=== PATIENT | female | born 1965 | race Caucasian/White ===

== ENCOUNTER 2023-07-06 10:04 | Inpatient (IN) ==
--- NOTE | 2023-05-29 14:46 | PAT Medication Instructions ---
Medication Instructions Date of Service May 29, 2023 Home Medications albuterol sulfate 90 mcg/actuation aerosol inhaler 2 puff inhalation QID PRN alprazolam 0.5 mg tablet (Xanax) 0.5 mg PO TID PRN duloxetine 60 mg capsule,delayed release (Cymbalta) 60 mg PO QAM fluticasone 100 mcg-salmeterol 50 mcg/dose blistr powdr for inhalation (Advair Diskus) 1 inh inhalation BID meloxicam 15 mg tablet 15 mg PO QAM nebivolol 10 mg tablet (Bystolic) 10 mg PO QAM upadacitinib 15 mg tablet,extended release 24 hr (Rinvoq) 15 mg PO QAM ASK your surgeon for instructions meloxicam 15 mg tablet 15 mg PO QAM ASK your prescriber and surgeon upadacitinib 15 mg tablet,extended release 24 hr (Rinvoq) 15 mg PO QAM Take morning of surgery With a small sip of water, OTHERWISE NOTHING TO EAT OR DRINK AFTER MIDNIGHT: albuterol sulfate 90 mcg/actuation aerosol inhaler 2 puff inhalation QID PRN(use if needed; please bring with you to hospital day of surgery if possible) alprazolam 0.5 mg tablet (Xanax) 0.5 mg PO TID PRN(if needed) duloxetine 60 mg capsule,delayed release (Cymbalta) 60 mg PO QAM fluticasone 100 mcg-salmeterol 50 mcg/dose blistr powdr for inhalation (Advair Diskus) 1 inh inhalation BID nebivolol 10 mg tablet (Bystolic) 10 mg PO QAM Take evening before surgery albuterol sulfate 90 mcg/actuation aerosol inhaler 2 puff inhalation QID PRN(if needed) alprazolam 0.5 mg tablet (Xanax) 0.5 mg PO TID PRN(if needed) fluticasone 100 mcg-salmeterol 50 mcg/dose blistr powdr for inhalation (Advair Diskus) 1 inh inhalation BID Other Notes If you have any questions please call us at [phone] or [phone] or [phone] or [phone]
--- NOTE | 2023-06-02 15:21 | Anesthesiology Consultation ---
Date of Service June 02, 2023 Assessment & Plan (1) Encounter for pre-operative examination: Chart Review Chart Review: Acceptable Risk for Surgery (pending PCP clearance 06/08/23) and Patient seen in Pre Admission Testing - Awaiting PCP clearance scheduled 06/08/23 (Dr Jeffry Grover)- please fax preop testing to PCP for review Per PAT appt on 06/02/23, patient denies any recent travel or large group activities. Pt is vaccinated for Covid. Will leave to surgeon's discretion if preop Covid testing needed. Educated on importance of using Covid precautions one week prior to surgery Teaching & Discussion Pre-Anesthesia Teaching/Discussion Notes: Instructed NPO after midnight before surgery,except medications with 15 cc of water. Medication instructions provided according to the PAT guidelines. History Surgery Operation Date: 06/16/23 12:25 Proposed Procedures p L4-L5 Decompression and Fusion - Pal Salas DO Height/Weight Height: 5 ft 3 in Weight: 108.7 kg Allergies Allergy/AdvReac Type Severity Reaction Status Date / Time No Known Allergies Allergy Verified 05/29/23 11:34 Medications Home Medications Medication Instructions Recorded Confirmed Last Taken albuterol sulfate 90 mcg/actuation 2 puff inhalation QID PRN 05/29/23 05/29/23 Unknown aerosol inhaler Shortness Of Breath alprazolam 0.5 mg tablet (Xanax) 0.5 mg PO TID PRN Anxiety 05/29/23 05/29/23 Unknown duloxetine 60 mg capsule,delayed 60 mg PO QAM 05/29/23 05/29/23 Unknown release (Cymbalta) fluticasone 100 mcg-salmeterol 50 1 inh inhalation BID 05/29/23 05/29/23 Unknown mcg/dose blistr powdr for inhalation (Advair Diskus) meloxicam 15 mg tablet 15 mg PO QAM 05/29/23 05/29/23 Unknown nebivolol 10 mg tablet (Bystolic) 10 mg PO QAM 05/29/23 05/29/23 Unknown upadacitinib 15 mg tablet,extended 15 mg PO QAM 05/29/23 05/29/23 Unknown release 24 hr (Rinvoq) Past Medical History Medical History (Updated 06/02/23 @ 15:43 by Rosita J. Sauk, PA-C) Ankylosing spondylitis On Rinvovq Anxiety Cardiac murmur per pt is mild, follows with PCP no significant issues to 2021 ECHO no significant murmur noted at 06/02/23 PAT appt Chronic back pain Chronic obstructive pulmonary disease mild, inhaler daily/prn (states has not used rescue inhaler in a few years) breathing stable History of COVID-19 03/2022--mild symptoms, no symptoms now Exercise / Class Metabolic Activity II 4-5 Yardwork/Stairs/Walk up hill (one flight of stairs- no chest pain or SOB ) Past Family History Family History Mother Family history of reaction to anesthesia "had a buildup of carbon dioxide in her blood, she was also a 3 pack a day smoker", "her blood pressure plummeted" per pt happened during procedure for stenosis on her back Past Surgical History Surgical History History of appendectomy History of bilateral tubal ligation History of bladder suspension procedure x2 History of colonoscopy History of endometrial ablation History of foot surgery bilt for plantar fasciitis History of laparoscopy multiple for endometriosis History of surgical procedure on eye proper using laser bilt eyes History of tooth extraction Past Anesthesia History No Hx of Anesthesia Complications and No Family Hx of Anesthesia Complications (with exception to mother - specifics vague - had build up of carbon dioxide/hypotension ) History of PONV No Hx of PONV and No Hx of Motion Sickness Social History Smoking Status: Former smoker Do You Dip or Chew Tobacco: No Smoking End Date: quit 04/01/23 (did smoke 1 pack a day for 30yrs) Hx Alcohol Use: Yes ("one drink a month if that") alcohol intake frequency: holidays/special occasions only Hx Substance Use: Yes (smokes marijuana intermittently for pain) substance use type: marijuana Last Used Substance: Days (ago) Last Used Substance Other:: last week used marijuana Review of Systems Patient denies chest pain, shortness of breath, dyspnea on exertion, reflux, cough, wheezing, palpitations. No hx of seizures, stroke, UT, apnea/snoring. No hx of blood clots or blood transfusions Physical Exam Vital Signs VITALS BP 126/68 (manually) P 82 TEMP 97.8 SP02 95% RESP 16 Constitutional no acute distress ENMT Mouth: no TMJ clicking Thyromental Distance: > or= 3.5 Finger Breadths (3.5) Mallampati Class: III Missing molars Neck + thick neck; neck extension not limited Respiratory normal respiratory effort; no respiratory distress Auscultation: lungs clear to auscultation bilaterally; no wheezes Cardiovascular Rate/Rhythm: regular rate and regular rhythm Heart Sounds: no murmur (no significant murmur noted ) Vessels: no carotid bruit Musculoskeletal Spine: no pain with cervical ROM Extremities: extremities normal to inspection Psychiatric Orientation: alert Lab Results Anesthesia Preop Results Results Anesthesia Widget: WBC 7.21 K/ul (4.8-10.8) 06/02/23 Hgb 11.6 g/dl (12.0-16.0) L 06/02/23 Hct 35.1 % (37.0-47.0) L 06/02/23 Plt 314 K/uL (130-400) 06/02/23 Na 138 mmol/L (136-145) 06/02/23 K 4.6 mmol/L (3.5-5.1) 06/02/23 Cl 104 mmol/L (98-107) 06/02/23 CO2 28 mmol/L (21-32) 06/02/23 BUN 14 mg/dl (6-23) 06/02/23 Creat 1.00 mg/dl (0.6-1.2) 06/02/23 Glucose Level 143 mg/dl (70-99(Fasting)) H 06/02/23 PT 10.0 Seconds (9.0-12.0) 06/02/23 PTT 26.0 Seconds (21.0-31.0) 06/02/23 INR 0.9 (0.9-1.1) 06/02/23 Urine Color Yellow 06/02/23 Urine Appearance Clear (Clear) 06/02/23 Urine pH 6.0 (4.5-7.5) 06/02/23 Urine Specific [place] 1.016 (1.000-1.030) 06/02/23 Urine Protein Negative (Negative) 06/02/23 Urine Glucose (UA) Negative (Negative) 06/02/23 Urine Ketones Negative (Negative) 06/02/23 Urine Blood Negative (Negative) 06/02/23 Urine Nitrite Negative (Negative) 06/02/23 Urine Bilirubin Negative (Negative) 06/02/23 Urine Urobilinogen Negative (Negative) 06/02/23 Urine Leukocyte Esterase Negative (Negative) 06/02/23 Blood Type O Positive 06/02/23 Antibody Screen NEGATIVE 06/02/23 Testing Electrocardiogram Date: 06/02/23 Findings: + NSR @ (77bpm ) Normal EKG per cardio Chest X-Ray Date: 06/02/23 Findings: + NAD FINDINGS: Exam is limited by underpenetration. Calcified aortic knob is seen. The lungs are clear. No evidence of pleural effusion or pneumothorax. Echocardiogram Date: 06/09/22 EF: 65-70% LV Function: normal Other Findings: no LVH Valvular Disease: + no significant valvular disease No LV outflow tract obstruction No evidence of pericardial effusion. No evidence of any gross valvular vegetations. No evidence of intracardiac thrombus. There is a significant pericardial fat pad present. No pleural effusion COVID-19 Risk Screen Screening Information COVID-19 Screen Date: 06/02/23 Exposure 21 Days Family/Household +COVID Last 21 Days: No Exposure 10 Days Any COVID Exposure Last 10 Days: No Symptoms Last 10 Days Experienced COVID Sx Last 10 Days: No + COVID 0-90 Days COVID + in Last 0-90 Days: No Risk Plan COVID Risk Plan: No Risk Identified Patient Education COVID Preop Screening Education Complete: Yes
[~2023-07-06 10:04] MED LIST: ACETAMINOPHEN 500 MG TAB PO SCH; CeleBREX 200 MG CAP PO SCH; DexMEDEtomidine HCL IV 100 MCG/ML VIAL IV ONE; FAMOTIDINE/PF 20 MG/2 ML VIAL IV ONE; GABAPENTIN 600 MG DOSE PO SCH; LR 15ML/HR IV SCH; LR 60ML/HR IV SCH; ceFAZolin 2000MG 2,000 MG/15 ML SYR IV SCH
[2023-07-06] MEDS ORDERED: fentaNYL citrate PF 100 MCG/2 ML VIAL ONE (11:57)
[2023-07-06] MEDS ORDERED: KETAMINE 50 MG/5 ML SYRINGE ONE (11:57)
[2023-07-06] MEDS ORDERED: MIDAZOLAM HCL 1 MG/ML 2ML VIAL ONE (11:57)
--- NOTE | 2023-07-06 12:22 | History & Physical Bridge Note ---
Date of Service July 06, 2023 History & Physical Bridge Note I have examined the patient, reviewed the History & Physical and in the interval since the performance of the History & Physical I have noted the following changes of clinical significance: no changes noted
--- NOTE | 2023-07-06 12:23 | History & Physical Report ---
Date of Service July 06, 2023 Assessment & Plan (1) Neurogenic claudication due to lumbar spinal stenosis: Plan: L4-L5 decompression and fusion History of Present Illness Chief Complaint: Back and leg pain Primary Care Provider: Jeffry Grover MD This is a 58-year-old female who presents chronic persistent back and leg pain and failing course of nonoperative care she is here for surgical invention. Allergies Allergy/AdvReac Type Severity Reaction Status Date / Time No Known Allergies Allergy Verified 07/06/23 10:22 Home Medications Medication Instructions Recorded Confirmed Type albuterol sulfate 90 mcg/actuation 2 puff inhalation QID PRN 05/29/23 05/29/23 History aerosol inhaler Shortness Of Breath alprazolam 0.5 mg tablet (Xanax) 0.5 mg PO TID PRN Anxiety 05/29/23 07/06/23 History duloxetine 60 mg capsule,delayed 60 mg PO QAM 05/29/23 07/06/23 History release (Cymbalta) fluticasone 100 mcg-salmeterol 50 1 inh inhalation BID 05/29/23 07/06/23 History mcg/dose blistr powdr for inhalation (Advair Diskus) meloxicam 15 mg tablet 15 mg PO QAM 05/29/23 07/06/23 History nebivolol 10 mg tablet (Bystolic) 10 mg PO QAM 05/29/23 07/06/23 History upadacitinib 15 mg tablet,extended 15 mg PO QAM 05/29/23 07/06/23 History release 24 hr (Rinvoq) Past Med/Surg History Medical History (Updated 07/06/23 @ 12:23 by Pal Salas DO) Ankylosing spondylitis On Rinvovq Anxiety Cardiac murmur per pt is mild, follows with PCP no significant issues to 2021 ECHO no significant murmur noted at 06/02/23 PAT appt Chronic back pain Chronic obstructive pulmonary disease mild, inhaler daily/prn (states has not used rescue inhaler in a few years) breathing stable History of COVID-19 03/2022--mild symptoms, no symptoms now Surgical History History of appendectomy History of bilateral tubal ligation History of bladder suspension procedure x2 History of colonoscopy History of endometrial ablation History of foot surgery bilt for plantar fasciitis History of laparoscopy multiple for endometriosis History of surgical procedure on eye proper using laser bilt eyes History of tooth extraction Family History Mother Family history of reaction to anesthesia "had a buildup of carbon dioxide in her blood, she was also a 3 pack a day smoker", "her blood pressure plummeted" per pt happened during procedure for stenosis on her back Social History Smoking Status: Former smoker Smoking End Date: quit 04/01/23 (did smoke 1 pack a day for 30yrs); Second Hand Exposure: No; Do You Dip or Chew Tobacco: No; Tobacco Cessation Education Requested by Patient: No Hx Alcohol Use: Yes ("one drink a month if that") Hx Substance Use: Yes (smokes marijuana intermittently for pain) Last Used Substance: Days (ago) Last Used Substance Other:: last week used marijuana Preferred Language: [place] Island[place] Communication Ability: Effective Senior Salesforce Developer Required: No Beliefs That Will Affect Care: None Current Living Situation: Spouse Other Information That Helps Us Care for You: No Feels Safe at Home: Yes Safety Concerns: Feels Safe At This Time Assistive Devices: Contacts and Glasses Physical Exam Physical Exam: Patient is alert and oriented Heart regular rhythm Lungs clear Results & Data Results & Data Vital Signs (Past 12 Hours) Vital Signs Temp Pulse Resp BP Pulse Ox O2 Del Method 07/06/23 10:26 36.8 C 80 20 152/94 H 98 Room Air
[2023-07-06] MEDS ORDERED: LIDOCAINE 2% 2 ML VIAL/AMP(20MG/ML) INFIL ONE (12:26)
[2023-07-06] MEDS ORDERED: PROPOFOL IV EMULSION 10 MG/ML 20 ML VIAL IV ONE (12:26)
[2023-07-06] MEDS ORDERED: ROCURONIUM BROMIDE 10 MG/ML 5 ML VIAL IV ONE (12:26)
[2023-07-06] MEDS ORDERED: ONDANSETRON INJ 2 MG/ML 2 ML VIAL ONE (12:26)
[2023-07-06] MEDS ORDERED: BUPIVACAINE/EPINEPHRINE 0.25% 1:200,000 30 ML VIAL ONE (12:39)
[2023-07-06] MEDS ORDERED: ceFAZolin 330 MG/ML 1 GM VIAL ONE ×2 (12:40→13:19)
[2023-07-06] MEDS ORDERED: ePHEDrine sulfate 50 MG/ML AMP IV PRN (12:49)
[2023-07-06] MEDS ORDERED: ONDANSETRON INJ 2 MG/ML 2 ML VIAL IV PRN ×2 (12:49→16:42)
[2023-07-06] MEDS ORDERED: PROMETHAZINE HCL 12.5 MG in SODIUM CHLORIDE 0.9% 50 ML IV PRN ×2 (12:49→16:42)
[2023-07-06] MEDS ORDERED: ATROPINE SULFATE 0.1 MG/ML 10ML SYR IV PRN (12:49)
[2023-07-06] MEDS ORDERED: HYDROmorphone INJ 2 MG/ML SYR/VIAL IV PRN (12:49)
[2023-07-06] MEDS ORDERED: fentaNYL citrate PF 100 MCG/2 ML VIAL IV PRN (12:49)
[2023-07-06] MEDS ORDERED: FLOSEAL HEMOSTATIC MATRIX 10ML TOP ONE (13:44)
[2023-07-06] MEDS ORDERED: HYDROmorphone INJ 2 MG/ML SYR/VIAL ONE (14:12)
[2023-07-06] MEDS ORDERED: SUGAMMADEX SODIUM 200 MG/2 ML VIAL IV ONE (14:20)
[2023-07-06] MEDS ORDERED: ePHEDrine sulfate 50 MG/ML AMP ONE (14:22)
--- NOTE | 2023-07-06 14:57 | Operative Report ---
Post Operative Report Pre & Post Diagnosis Operation Date: 07/06/23 11:45 Pre-Op Diagnosis: Neurogenic claudication due to lumbar spinal stenosis Post-Op Diagnosis: Neurogenic claudication due to lumbar spinal stenosis I identified the patient and participated in the time-out.: Yes Procedure Operation Date: 07/06/23 11:45 Actual Procedures 1. Lumbar decompression with bilateral medial facetectomies and foraminotomies L3-L4 L4-5. #2 posterior spinal fusion L4-5. #3 placement posterior instrumentation L4-5 per #4 interbody fusion L4-5 per #5 placement of Spira 14 x 26 mm cage x2 at L4-5 per #6 placement locally harvested morselized autograft and posterior gutters. #7 placement I factor bone of the talus in the interbody space and posterior lateral gutters. Surgeon Pal Salas, DO Nurse Anesthetist none Estimated Blood Loss 100 Findings See Below The patient is 5 foot 3 weighing over 103 kg with a BMI in excess of 40. The patient's body habitus did contribute to significant technical difficulty requiring her deepest retractors longer instruments in order to perform her procedure. This at least 50% increased operative time. Specimens none Indications This is a 58-year-old female who presents above-mentioned diagnosis after failing course of nonoperative care is here for surgical intervention. Description of Procedure Patient was met with identified informed consent obtained. Patient was then taken to the operative suite underwent ablation placed in a prone position on the Wilmer table top of the Brien frame. All bony prominences well-padded eyes inspected to ensure no external pressure placed upon the. This point the lumbar spine was prepped and draped in a sterile fashion. Sharp dissection with the assistance of Bovie cautery to form down to and exposing the lamina transverse processes of L4-L5. From caudal to cephalad fashion complete laminectomy of L4 partial and active L3 was performed including bilateral medial facetectomies and foraminotomies addressing severe spinal stenosis. Pedicle screws then placed in L4-5 bilaterally with assistance of fluoroscopy and appropriate sized karol placed. By way of a transforaminal approach on the right and discectomy was performed endplates guided to subcortically bone and a 14 x 26 mm Spira cage with I factor tapped in position. Then proceeded to approach the transforaminal joint region on the left again discectomy performed endplates curetted to subcortical bleeding bone and a second 14 x 26 mm Spira cage with I factor tapped in position. The rods were then compressed bilaterally locked into position and the transverse processes of L4-5 burred to subcortical bleed ing bone. I factor amount of the test and locally harvested morselized graft was placed in the posterior gutters. 15 round WHITNEY inserted. The incision was then closed with 1 Vicryl the fascia 2-0 Vicryl subcutaneously and 4 Monocryl for final skin closure. Steri-Strips sterile dressing placed. Patient waken taken to PACU stable condition. Please note spinal cord monitoring was utilized at the procedure no changes noted. I attest to the content of the Intraoperative Record and any orders documented therein. Any exceptions are noted below.
--- NOTE | 2023-07-06 15:53 | Anesthesiology Progress Note ---
Date of Service July 06, 2023 Anesthesia Post Procedure Vital Signs Vital Signs: Temp Pulse Pulse Resp BP Pulse Ox O2 Del Method 07/06/23 15:45 70 12 116/62 94 Nasal Cannula 07/06/23 15:35 80 12 107/65 94 Oxymask 07/06/23 15:25 78 14 120/82 97 Oxymask 07/06/23 15:15 74 16 99/68 L 97 Oxymask 07/06/23 15:05 36.4 C L 84 16 116/95 94 Oxymask 07/06/23 10:26 36.8 C 80 20 152/94 H 98 Room Air O2 Flow Rate 07/06/23 15:45 3 07/06/23 15:35 5 07/06/23 15:25 5 07/06/23 15:15 8 07/06/23 15:05 10 07/06/23 10:26 Pain Intensity Bilateral Lower Back: Pain Intensity: 10 Bilateral Back: Pain Intensity: 10 Transfer of Care Handoff Completed per policy Notes Mental Status: alert / awake / arousable and participated in evaluation Patient Amnestic to Procedure: Yes Nausea / Vomiting: adequately controlled Pain: adequately controlled Airway Patency, RR, SpO2: stable & adequate BP & HR: stable & adequate Hydration State: stable & adequate Anesthetic Complications: no major complications apparent
[2023-07-06] MEDS ORDERED: ALPRAZolam 0.5 MG TABLET PO PRN (16:42)
[2023-07-06] MEDS ORDERED: FAMOTIDINE 20 MG TAB PO PRN (16:42)
[2023-07-06] MEDS ORDERED: HYDROmorphone INJ 0.5 MG/0.5 ML SYR IV PRN (16:42)
[2023-07-06] MEDS ORDERED: LORazepam 0.5 MG TAB PO PRN (16:42)
[2023-07-06] MEDS ORDERED: hydrOXYzine HCl 25 MG TAB PO PRN (16:42)
[2023-07-06] MEDS ORDERED: METOCLOPRAMIDE HCL INJ 5 MG/ML 2 ML VIAL IV PRN (16:42)
[2023-07-06] MEDS ORDERED: DO NOT ADMINISTER FLU VACCINE PRN (16:42)
[2023-07-06] MEDS ORDERED: ALUMINUM/MAGNESIUM SUSP 30 ML UDC PO PRN (16:42)
[2023-07-06] MEDS ORDERED: SOD PHOSPHATE/SOD BIPHOSPHATE ENEMA 132 ML BTL PR PRN (16:42)
[2023-07-06] MEDS ORDERED: LORazepam 2 MG/1 ML VIAL IV PRN (16:42)
[2023-07-06] MEDS ORDERED: ACETAMINOPHEN 1,000 MG/100 ML VIAL IV PRN (16:42)
[2023-07-06] MEDS ORDERED: traMADol HCL 50 MG TABLET PO PRN (16:42)
[2023-07-06] MEDS ORDERED: ONDANSETRON 4 MG OD TAB PO PRN (16:42)
[2023-07-06] MEDS ORDERED: bisacodyL 10 MG SUPP PR PRN (16:42)
[2023-07-06] MEDS ORDERED: ALBUTEROL HFA 8 GM INHALER INH PRN (16:42)
[2023-07-06] MEDS ORDERED: NALOXONE HCL 0.4 MG/1 ML VIAL/CARP IV PRN (16:42)
[2023-07-06] MEDS ORDERED: DO NOT ADMINISTER PNEUMOCOCCAL VACCINE PRN (16:42)
[2023-07-06] MEDS ORDERED: ACETAMINOPHEN 500 MG TAB PO PRN (16:42)
[2023-07-06] MEDS ORDERED: MAGNESIUM HYDROXIDE SUSP 30 ML UDC PO PRN (16:42)
[2023-07-06] MEDS: HYDROmorphone INJ 1 MG/ML SYRINGE IV PRN ×2 (16:53→21:17)
[2023-07-06] MEDS: LACTATED RINGER'S 1,000 ML IV SCH ×2 (16:57→23:44)
--- NOTE | 2023-07-06 17:06 | Fluoroscopy Report ---
FL lumbar spine 2-3V CLINICAL HISTORY: L4-L5 D/F COMPARISON STUDY: None FLUOROSCOPY TIME: 20.7 seconds FLUOROSCOPY IMAGES: 2 EXPOSURE DOSE: 21.84 mGy FINDINGS: Laminectomy with posterior interbody rods and screw fusion with discectomy at L4-L5. Hardwa re appears intact. No unexpected opaque foreign bodies identified. IMPRESSION: Fluoroscopic assistance as above. ACT 112: Negative or not required by law. Electronically signed by: James Donis M.D. 07/06/2023 5:05 PM
--- NOTE | 2023-07-06 17:23 | Hospitalist Consultation ---
Date of Consultation July 06, 2023 Assessment & Plan (1) Neurogenic claudication due to lumbar spinal stenosis: - Pain management, bowel regimen and DVT ppx per the primary team - PT/OT consult - Follow am CBC to monitor for acute blood loss, last Hgb was 11.6 on 06/02/23 - New catheter is out (2) Anxiety: -Continue Cymbalta, Xanax prn anxiety (3) Ankylosing spondylitis: -Patient is on Rinvoq 15 mg daily - will hold for now and can resume upon disch arge (4) Chronic obstructive pulmonary disease: -Continue Advair daily (5) Morbid obesity with BMI of 40.0-44.9, adult: - Diet and exercise to be encouraged throughout hospital stay (6) HTN (hypertension): -Nebivolol 10 mg daily was ordered, thought that hypertension was secondary to pain (7) Tobacco use: - Cessation advised at bedside, pt smoked 0.75 ppd - Holding nicotine patch for now and reassess tomorrow (8) Hyperglycemia: -Last A1c was 6.4 on outpatient testing -Monitor glucose levels, likely to be elevated with dexamethasone intraoperatively. -Diet and exercise to be encouraged throughout hospital stay and upon discharge DVT ppx: - teds, scds CODE: Full code Dispo: From home, likely to remain in the hospital x 1-2 days Thank you for involving us in the care of Ms. Cross. If you have any questions or concerns please do not hesitate to call. At this time medicine will follow along. A total of 35 minutes were spent with greater than 50% of that time face to face with the patient, personally reviewing all current laboratories, imaging studie s, past medication reconciliation, outpatient chart review, and discussion with specialists to collaborate care for the patient with attending. Please see attending documentation for corrections and/or additions. Supervising Physician Co-Signing Physician Notes Medical mx of elective lumbar decompresion surgery for medical mx of comorbidities including ankylosing spondylitis,copd htn. reviewed meds Pain mx as needed History of Present Illness Reason for Consultation: Medical Mangement Requesting Physician: Dr. Salas Attending Physician: Pal Salas, DO History of Present Illness This is a 58-year-old female with PMHx of COPD, chronic back pain, anxiety, ankylosing spondylitis, chronic tobacco use, morbid obesity with BMI of 40.6, who presents to the hospital for elective lumbar decompression fusion of L3-L5 by Dr. Salas on 07/06/2023. Pt is still groggy from anesthesia, but daughter at bedside is assisting in helping her with drinking clear liquids for dinner. Pt reports pain is much better controlled with dilaudid and got a dose recently. Her pain is 3/10. Pt does not wear O2 at baseline but is still on s/p surgery. Can move her legs and feet without any difficulty, no numbness. Pt is able to recall her home medications. Intermittently she is drowsy and closes her eyes but is responding appropriately and able to answer all questions. Allergies Allergy/AdvReac Type Severity Reaction Status Date / Time No Known Allergies Allergy Verified 07/06/23 10:22 Home Medications Medication Instructions Recorded Confirmed Type albuterol sulfate 90 mcg/actuation 2 puff inhalation QID PRN 05/29/23 05/29/23 History aerosol inhaler Shortness Of Breath alprazolam 0.5 mg tablet (Xanax) 0.5 mg PO TID PRN Anxiety 05/29/23 07/06/23 History duloxetine 60 mg capsule,delayed 60 mg PO QAM 05/29/23 07/06/23 History release (Cymbalta) fluticasone 100 mcg-salmeterol 50 1 inh inhalation BID 05/29/23 07/06/23 History mcg/dose blistr powdr for inhalation (Advair Diskus) meloxicam 15 mg tablet 15 mg PO QAM 05/29/23 07/06/23 History nebivolol 10 mg tablet (Bystolic) 10 mg PO QAM 05/29/23 07/06/23 History upadacitinib 15 mg tablet,extended 15 mg PO QAM 05/29/23 07/06/23 History release 24 hr (Rinvoq) fexofenadine 180 mg tablet 180 mg PO DAILY 07/06/23 07/06/23 History Patient History Medical History (Updated 07/06/23 @ 17:21 by Ester Ellis PA-C) Ankylosing spondylitis On Rinvovq Anxiety Cardiac murmur per pt is mild, follows with PCP no significant issues to 2021 ECHO no significant murmur noted at 06/02/23 PAT appt Chronic back pain Chronic obstructive pulmonary disease mild, inhaler daily/prn (states has not used rescue inhaler in a few years) breathing stable History of COVID-19 03/2022--mild symptoms, no symptoms now Morbid obesity with BMI of 40.0-44.9, adult Surgical History History of appendectomy History of bilateral tubal ligation History of bladder suspension procedure x2 History of colonoscopy History of endometrial ablation History of foot surgery bilt for plantar fasciitis History of laparoscopy multiple for endometriosis History of surgical procedure on eye proper using laser bilt eyes History of tooth extraction Family History Mother Family history of reaction to anesthesia "had a buildup of carbon dioxide in her blood, she was also a 3 pack a day smoker", "her blood pressure plummeted" per pt happened during procedure for stenosis on her back Social History Smoking Status: Former smoker Smoking End Date: quit 04/01/23 (did smoke 1 pack a day for 30yrs); Second Hand Exposure: No; Do You Dip or Chew Tobacco: No; Tobacco Cessation Education Requested by Patient: No Hx Alcohol Use: Yes ("one drink a month if that") Hx Substance Use: Yes (smokes marijuana intermittently for pain) Last Used Substance: Days (ago) Last Used Substance Other:: last week used marijuana Preferred Language: Frisian Communication Ability: Effective Rubber Curer Required: No Beliefs That Will Affect Care: None Current Living Situation: Spouse Other Information That Helps Us Care for You: No Feels Safe at Home: Yes Safety Concerns: Feels Safe At This Time Assistive Devices: Contacts and Glasses Review of Systems Review of Systems: Constitutional: No fever, sweats or chills Eyes: No diplopia, no worsening or blurred vision ENT: normal hearing, no trouble swallowing Respiratory: No cough, sputum, dyspnea at rest or on exertion Cardiovascular: No chest pain, tightness or palpitations Abdomen: No pain, nausea, vomiting, diarrhea or constipation Back: Pain is 3/10 Musculoskeletal: No joint pain, calf pain, swelling Neurologic: No weakness, numbness/tingling, or balance problems Psychiatric: + hx of anxiety and depression Skin: No rash or itch Physical Exam Physical Exam: General: awake, + drowsy, no apparent distress Head: Normocephalic, atraumatic ENT: PERRL, EOMI, no pharyngeal exudate, mucous membranes moist Chest: Clear to auscultation, on 2L via NC, no adventitious breath sounds Cardiac: Regular rate and rhythm, no murmur, no JVD, normal peripheral pulses, good capillary refill Abdominal: NABS x 4 quadrants, soft, nondistended, nontender to palpation, no rebound or guarding Back: dressing c/d/i, WHITNEY drain in place with serosanginous bloody outs Extremities: Normal inspection, no peripheral edema or erythema, calfs nontender to palpation Psych: Normal mood and affect Neuro: AAO x 3, strength intact bilaterally and rated 5/5, no motor deficits, speech is clear, no peripheral sensory deficits Results & Data Results & Data Vital Signs (Past 12 Hours) Vital Signs Temp Pulse Pulse Resp BP BP Pulse Ox 07/06/23 17:03 36.4 C L 73 14 96/64 L 94 07/06/23 16:30 36.6 C 80 14 111/73 96 07/06/23 16:15 86 12 120/68 94 07/06/23 16:05 74 12 114/71 95 07/06/23 15:55 80 12 116/69 97 07/06/23 15:45 70 12 116/62 94 07/06/23 15:35 80 12 107/65 94 07/06/23 15:25 78 14 120/82 97 07/06/23 15:15 74 16 99/68 L 97 07/06/23 15:05 36.4 C L 84 16 116/95 94 07/06/23 10:26 36.8 C 80 20 152/94 H 98 O2 Del Method O2 Flow Rate 07/06/23 17:03 Nasal Cannula 2 07/06/23 16:30 Nasal Cannula 2 07/06/23 16:15 Nasal Cannula 3 07/06/23 16:05 Nasal Cannula 3 07/06/23 15:55 Nasal Cannula 3 07/06/23 15:45 Nasal Cannula 3 07/06/23 15:35 Oxymask 5 07/06/23 15:25 Oxymask 5 07/06/23 15:15 Oxymask 8 07/06/23 15:05 Oxymask 10 07/06/23 10:26 Room Air
[2023-07-06] MEDS: oxyCODONE HCL IR 5 MG TAB (IMMEDIATE RELEASE) PO PRN (18:21)
[2023-07-06] MEDS: DOCUSATE SODIUM/SENNA 50/8.6MG TAB PO SCH (20:54)
[2023-07-06] MEDS: ceFAZolin 2000MG 2,000 MG/15 ML SYR IV SCH (20:54)
[2023-07-07] MEDS: HYDROmorphone INJ 1 MG/ML SYRINGE IV PRN (01:49)
[2023-07-07] MEDS: POLYETHYLENE (MIRALAX) 17 GM PACK PO SCH ×3 (05:45→17:35)
[2023-07-07] MEDS: ceFAZolin 2000MG 2,000 MG/15 ML SYR IV SCH (05:45)
[2023-07-07] MEDS: LACTATED RINGER'S 1,000 ML IV SCH (06:20)
[2023-07-07 07:13] LABS: Basophils # (auto) 0.01 K/uL (0-0.2); Basophils % (auto) 0.1 %; Eosinophils # (auto) 0.01 K/uL (0-0.50); Eosinophils % (auto) 0.1 %; Hematocrit (blood only) 29.9 % (37.0-47.0); Hemoglobin 9.9 g/dl (12.0-16.0); Immature Granulocytes # (auto) 0.09 K/uL (0.01-0.20); Immature Granulocytes % (auto) 0.7 %; Lymphocytes # (auto) 1.25 K/uL (1.2-3.4); Lymphocytes % (auto) 9.3 %; Mean Corpuscular Hemoglobin 31.2 pg (25.0-34.0); Mean Corpuscular Hgb Conc 33.1 g/dL (32.0-36.0); Mean Corpuscular Volume 94.3 fL (80.0-100.0); Mean Platelet Volume 9.3 fL (9.4-12.4); Monocytes # (auto) 0.61 K/uL (0.11-0.59); Monocytes % (auto) 4.5 %; Neutrophils # (auto) 11.53 K/uL (1.40-6.50); Neutrophils % (auto) 85.3 %; Platelet Count 274 K/uL (130-400); RDW Coefficient of Variation 13.4 % (11.5-14.5); RDW Standard Deviation 46.2 fL (36.4-46.3); Red Blood Count 3.17 M/uL (4.20-5.40)
[2023-07-07 07:30] LABS: Calcium 8.5 mg/dl (8.6-10.3); Est GFR (African American) 78.6 ml/min; Est GFR (Non-African American) 67.8 ml/min; Potassium 4.4 mmol/L (3.5-5.1)
[2023-07-07] MEDS: DULoxetine HCL 60 MG CAP PO SCH (08:47)
[2023-07-07] MEDS: METOPROLOL TARTRATE 25 MG TAB PO SCH ×2 (08:47→20:38)
[2023-07-07] MEDS: FLUTICASONE/VILANTEROL 100/25MCG 14 PUFFS/INHALER INH SCH (08:48)
[2023-07-07] MEDS: dexAMETHasone 6 MG in SYRINGE 0 ML IV SCH (08:49)
[2023-07-07] MEDS: oxyCODONE HCL IR 5 MG TAB (IMMEDIATE RELEASE) PO PRN ×3 (09:08→18:50)
--- NOTE | 2023-07-07 10:15 | Orthopedic Progress Note ---
Date of Service July 07, 2023 Assessment & Plan (1) Neurogenic claudication due to lumbar spinal stenosis: Plan: At this time initiate physical therapy monitor WHITNEY operatively discharge home in the next few days. Admission and Anticipated Discharge Date Admission Date: July 06, 2023 Subjective Back pain controlled leg pain improved Physical Exam Physical Exam: Patient is seen but bed. She is constricted testing. Appears comfortable. Results & Data Vital Signs (Past 12 Hours) Vital Signs Temp Pulse Resp BP Pulse Ox O2 Del Method O2 Flow Rate 07/07/23 08:45 95 H 124/70 97 Room Air 07/07/23 07:57 36.9 C 93 H 18 121/65 93 Room Air 07/07/23 02:38 36.7 C 91 H 16 129/67 93 Nasal Cannula 2.0 07/06/23 23:05 36.6 C 85 16 109/74 97 Nasal Cannula 3.0 Queries Orthopedic Spine Obesity: Yes
[2023-07-07] MEDS ORDERED: DEXTROSE 50% 50 ML SYRINGE IV PRN (13:23)
[2023-07-07] MEDS ORDERED: GLUCOSE 40% GEL 15 GM TUBE PO PRN (13:23)
[2023-07-07] MEDS ORDERED: GLUCOSE 10 TAB/TUBE PO PRN (13:23)
[2023-07-07] MEDS ORDERED: GLUCAGON FOR INJ 1 MG VIAL SQ PRN (13:23)
[2023-07-07] MEDS ORDERED: CARBOHYDRATES FOR HYPOGLYCEMIA PO PRN (13:23)
--- NOTE | 2023-07-07 13:28 | Hospitalist Progress Note ---
Date of Service July 07, 2023 Assessment & Plan (1) Neurogenic claudication due to lumbar spinal stenosis: Plan: POD#1 L4-5 decompression and fusion by Dr. Salas Activity and wound care orders as per ortho Pain control with bowel regimen PT/OT EBL 100cc, WHITNEY output 390cc to date Acute blood loss anemia Preop Hgb 11.6 --> 9.9 No indication for transfusion, monitor H&H and transfuse blood products PRN (2) Hyperglycemia: Plan: Hgb A1c 6.4 05/2023 Glucose 227 on a.m. labs, likely secondary to intraoperative steroids Will provide NovoLog per protocol while hospitalized Patient may benefit from metformin -- recommend to follow up with PCP (3) Hyponatremia: Plan: Na+ 127, pseudohyponatremia in the setting of hyperglycemia, corrected to 132 Will give 1 L NSS Follow BMP in a.m. (4) HTN (hypertension): Plan: BP controlled, receiving metoprolol while hospitalized as home nebivolol is nonformulary (5) History of shingles: Plan: Patient reports shingles infection to right lower extremity a few weeks ago, completed course of prednisone and valacyclovir Lesions currently dried and scabbed over (6) Anxiety: Plan: Continue Cymbalta, Xanax prn anxiety (7) Ankylosing spondylitis: Plan: Patient is on Rinvoq 15 mg daily - will hold for now and can resume upon discharge (8) Chronic obstructive pulmonary disease: Plan: Appears stable, no signs of acute exacerbation Continue home inhalers (9) Morbid obesity with BMI of 40.0-44.9, adult: Plan: Diet and exercise to be encouraged throughout hospital stay (10) Tobacco use: Plan: Cessation encouraged Nicotine patch as needed DVT PROPHYLAXIS TEDs/SCDs as per spine Ortho Patient seen in collaboration with Dr. Adams. Thank you for this consultation. We will follow the patient with you during their hospital stay. You can reach a member of the [facility] Hospitalist Team 15/06 via the [facility] Hospitalist role in [place] Text. Plan Attending Addendum: care coordinated with MARY Pederson please refer to her notes for full details, I agree with her notes patient seen and examined, records reviewed by myself as well diagnoses and plan of care as per MARY Pederson's notes Gilbert Adams MD Admission and Anticipated Discharge Date Admission Date: July 06, 2023 Subjective Follow-up for medical management, s/p back surgery. Patient seen and examined. Sitting up in the chair. Currently rates pain at #8/10, waiting for pain medicine. Does not appear to be in any acute distress. Denies chest pain and shortness of breath. No abdominal pain or nausea. New catheter removed, urinate without difficulty. + flatus however no BM. Physical Exam Constitutional: WD/WN, vitals as above Respiratory: normal respiratory effort, lungs clear to auscultation Cardiovascular: Rate/Rhythm: regular rate and regular rhythm Vessels: no rmal peripheral pulses Extremities: no edema Gastrointestinal (Abdomen): Percussion/Palpation: abdomen soft; abdomen no ntender Musculoskeletal: S/p back surgery, strength strong and equal BLE, dressing CDI, drain in place draining bloody drainage Skin: scattered dried, scabbed lesions over the lateral aspect of the RLE from the distal thigh to ankle Neurologic: no focal motor deficits Psychiatric: A+Ox3, euthymic affect Results & Data Results & Data Vital Signs (Past 12 Hours) Vital Signs Temp Pulse Resp BP BP Pulse Ox O2 Del Method 07/07/23 11:09 37.0 C 80 19 117/68 94 Room Air 07/07/23 08:45 95 H 124/70 97 Room Air 07/07/23 07:57 36.9 C 93 H 18 121/65 93 Room Air 07/07/23 02:38 36.7 C 91 H 16 129/67 93 Nasal Cannula O2 Flow Rate 07/07/23 11:09 07/07/23 08:45 07/07/23 07:57 07/07/23 02:38 2.0 Laboratory Results Short CBC 07/07/23 Range/Units 06:47 WBC 13.50 H (4.8-10.8) K/ul Hgb 9.9 L (12.0-16.0) g/dl Hct 29.9 L (37.0-47.0) % Plt Count 274 (130-400) K/uL BMP 07/07/23 06:47 Sodium 129 L Potassium 4.4 Chloride 99 Carbon Dioxide 21 BUN 15 Creatinine 0.94 Glucose 227 H Calcium 8.5 L Diagnostic Findings Short CBC 07/07/23 Range/Units 06:47 WBC 13.50 H (4.8-10.8) K/ul Hgb 9.9 L (12.0-16.0) g/dl Hct 29.9 L (37.0-47.0) % Plt Count 274 (130-400) K/uL [facility] 07/07/23 06:47 Sodium 129 L Potassium 4.4 Chloride 99 Carbon Dioxide 21 BUN 15 Creatinine 0.94 Glucose 227 H Calcium 8.5 L
[2023-07-07] MEDS ORDERED: SODIUM CHLORIDE 0.9% 1000ML 1,000 ML IV SCH (13:30)
[2023-07-07] MEDS: INSULIN ASPART PER UNIT CHARGE SC SCH ×2 (17:42→20:45)
[2023-07-07] MEDS: diphenhydrAMINE Capsule 25 MG CAP PO PRN (20:44)
[2023-07-07] MEDS: DOCUSATE SODIUM/SENNA 50/8.6MG TAB PO SCH (20:45)
[2023-07-08] MEDS: POLYETHYLENE (MIRALAX) 17 GM PACK PO SCH ×2 (00:24→05:33)
[2023-07-08] MEDS: oxyCODONE HCL IR 5 MG TAB (IMMEDIATE RELEASE) PO PRN ×3 (00:25→09:32)
--- NOTE | 2023-07-08 07:50 | Hospitalist Progress Note ---
Date of Service July 08, 2023 Assessment & Plan (1) Neurogenic claudication due to lumbar spinal stenosis: Plan: S/p L4-5 decompression and fusion by Dr. Salas Activity and wound care orders as per ortho Pain control with bowel regimen PT/OT Acute blood loss anemia Preop Hgb 11.6 --> 9.9, now 9.8 stable from yesterday No indication for transfusion, monitor H&H and transfuse blood products PRN (2) Hyperglycemia: Plan: Hgb A1c 6.4 05/2023 Glucose 227 yesterday a.m. labs, likely secondary to intraoperative steroids provided NovoLog per protocol while hospitalized Patient may benefit from metformin -- recommend to follow up with PCP, pt in agreement (3) Hyponatremia: Plan: Na+ 127, pseudohyponatremia in the setting of hyperglycemia, corrected to 132 Received 1 L NSS Na this AM normal 136 (4) HTN (hypertension): Plan: BP controlled, receiving metoprolol while hospitalized as home nebivolol is nonformulary (5) History of shingles: Plan: Patient reports shingles infection to right lower extremity a few weeks ago, completed course of prednisone and valacyclovir Lesions currently dried and scabbed over (6) Anxiety: Plan: Continue Cymbalta, Xanax prn anxiety (7) Ankylosing spondylitis: Plan: Patient is on Rinvoq 15 mg daily - will hold for now and can resume upon discharge (8) Chronic obstructive pulmonary disease: Plan: Appears stable, no signs of acute exacerbation Continue home inhalers (9) Morbid obesity with BMI of 40.0-44.9, adult: Plan: Lifestyle modifications encouraged (10) Tobacco use: Plan: Cessation encouraged Nicotine patch as needed DVT PROPHYLAXIS TEDs/SCDs as per spine Ortho Thank you for this consultation. We will follow the patient with you during their hospital stay. You can reach a member of the [facility] Hospitalist Team 15/06 via the [facility] Hospitalist role in [place] Text. Admission and Anticipated Discharge Date Admission Date: July 06, 2023 Subjective Follow-up for medical management, s/p back surgery. Sitting up in the chair in NAD Denies chest pain and shortness of breath. No abdominal pain or nausea. Voids w/o difficulty, Had BM Ambulates in hallway Likely to be discharged later today Review of Systems Review of Systems: All systems reviewed & are unremarkable except as noted in Subjective Physical Exam Physical Exam: Constitutional:L WD/WN, vitals as a gagan Respiratory: normal respiratory effort, lungs albin ar to auscultation Cardiovascular:L Rate/Rhythm: regul ar rate and regula r rhythm Vessels: normal peripheral pulses Extremiti es: no edema Gastrointestinal ( Abdomen): Percussion/Palpati on: abdomen soft; abdomen nontender Musculoskeletal: moves extremities , ambulates Skin: scattered dried, scabbed lesions ov er the lateral asp ect of the RLE fro m the distal thigh to ankle Neurologic: no focal motor def icits Psychiatric: A+Ox3, euthymic af fect Results & Data Results & Data Vital Signs (Past 12 Hours) Vital Signs Temp Pulse Resp BP Pulse Ox O2 Del Method 07/08/23 07:44 36.6 C 72 18 158/74 H 96 Room Air Laboratory Results 07/08/23 07/08/23 07/08/23 Range/Units 11:43 07:35 07:18 WBC (4.8-10.8) K/ul RBC (4.20-5.40) M/uL Hgb (12.0-16.0) g/dl Hct (37.0-47.0) % MCV (80.0-100.0) fL MCH (25.0-34.0) pg MCHC (32.0-36.0) g/dL RDW Std Deviation (36.4-46.3) fL RDW Coeff of Juancho (11.5-14.5) % Plt Count (130-400) K/uL MPV (9.4-12.4) fL Sodium (136-145) mmol/L Potassium (3.5-5.1) mmol/L Chloride (98-107) mmol/L Carbon Dioxide (21-32) mmol/L Anion Gap (3-11) BUN (6-23) mg/dl Creatinine (0.6-1.2) mg/dl Est Cr Clr Drug Dosing ml/min Est GFR ( Amer) ml/min Est GFR (Non-Af Amer) ml/min BUN/Creatinine Ratio (10-20) Glucose (70-99(Fasting)) mg/dl POC Glucose 139 H 125 H (70-99) mg/dl Estimat Average Glucose 154 mg/dl Hemoglobin A1c 7.0 H (4.5-5.6) % Calcium (8.6-10.3) mg/dl 07/08/23 07/08/23 07/07/23 Range/Units 07:18 07:18 20:34 WBC 11.60 H (4.8-10.8) K/ul RBC 3.22 L (4.20-5.40) M/uL Hgb 9.8 L (12.0-16.0) g/dl Hct 30.1 L (37.0-47.0) % MCV 93.5 (80.0-100.0) fL MCH 30.4 (25.0-34.0) pg MCHC 32.6 (32.0-36.0) g/dL RDW Std Deviation 46.7 H (36.4-46.3) fL RDW Coeff of Juancho 13.8 (11.5-14.5) % Plt Count 278 (130-400) K/uL MPV 9.3 L (9.4-12.4) fL Sodium 136 (136-145) mmol/L Potassium 4.0 (3.5-5.1) mmol/L Chloride 104 (98-107) mmol/L Carbon Dioxide 27 (21-32) mmol/L Anion Gap 5 (3-11) BUN 15 (6-23) mg/dl Creatinine 0.93 (0.6-1.2) mg/dl Est Cr Clr Drug Dosing 77.8 ml/min Est GFR ( Amer) 79.6 ml/min Est GFR (Non-Af Amer) 68.7 ml/min BUN/Creatinine Ratio 16.1 (10-20) Glucose 120 H (70-99(Fasting)) mg/dl POC Glucose 223 H (70-99) mg/dl Estimat Average Glucose mg/dl Hemoglobin A1c (4.5-5.6) % Calcium 8.9 (8.6-10.3) mg/dl 07/07/23 Range/Units 16:39 WBC (4.8-10.8) K/ul RBC (4.20-5.40) M/uL Hgb (12.0-16.0) g/dl Hct (37.0-47.0) % MCV (80.0-100.0) fL MCH (25.0-34.0) pg MCHC (32.0-36.0) g/dL RDW Std Deviation (36.4-46.3) fL RDW Coeff of Juancho (11.5-14.5) % Plt Count (130-400) K/uL MPV (9.4-12.4) fL Sodium (136-145) mmol/L Potassium (3.5-5.1) mmol/L Chloride (98-107) mmol/L Carbon Dioxide (21-32) mmol/L Anion Gap (3-11) BUN (6-23) mg/dl Creatinine (0.6-1.2) mg/dl Est Cr Clr Drug Dosing ml/min Est GFR ( Amer) ml/min Est GFR (Non-Af Amer) ml/min BUN/Creatinine Ratio (10-20) Glucose (70-99(Fasting)) mg/dl POC Glucose 257 H (70-99) mg/dl Estimat Average Glucose mg/dl Hemoglobin A1c (4.5-5.6) % Calcium (8.6-10.3) mg/dl Medications Administered Current Inpatient Medications Acetaminophen (Acetaminophen 500 Mg Tab) 1,000 mg PO Q8H PRN PRN Reason: MILD Pain Scale 1,2,3 & Pre PT Stop: 08/05/23 16:41 Al Hydrox/Mg Hydrox/Simethicone (Aluminum/Magnesium Susp 30 Ml Udc) 30 ml PO Q6H PRN PRN Reason: Dyspepsia Stop: 08/05/23 16:41 Albuterol (Albuterol Hfa 8 Gm Inhaler) 2 puffs INH QID PRN PRN Reason: Shortness Of Breath Stop: 08/05/23 16:41 Alprazolam (Alprazolam 0.5 Mg Tablet) 0.5 mg PO TID PRN PRN Reason: Anxiety Stop: 08/05/23 16:41 Last Admin: 07/07/23 20:44 Dose: 0.5 mg Bisacodyl (Bisacodyl 10 Mg Supp) 10 mg KS DAILY PRN PRN Reason: Constipation Stop: 08/05/23 16:41 Dextrose (Dextrose 50% 50 Ml Syringe) 25 - 50 ml IV UD PRN; Protocol PRN Reason: Hypoglycemia Protocol Stop: 08/06/23 13:22 Diphenhydramine HCl (Diphenhydramine Capsule 25 Mg Cap) 25 mg PO Q6H PRN PRN Reason: Allergic Rhinitis/Insomnia Stop: 08/05/23 16:41 Last Admin: 07/07/23 20:44 Dose: 25 mg Duloxetine HCl (Duloxetine Hcl 60 Mg Cap) 60 mg PO QAM EDWINA Stop: 08/06/23 08:59 Last Admin: 07/07/23 08:47 Dose: 60 mg Famotidine (Famotidine 20 Mg Tab) 20 mg PO Q12H PRN PRN Reason: Dyspepsia Stop: 08/05/23 16:41 Fluticasone/Vilanterol (Fluticasone/Vilanterol 100/25mcg 14 Puffs/Inhaler) 1 puffs INH DAILY EDWINA Stop: 08/06/23 08:59 Last Admin: 07/07/23 08:48 Dose: 1 puffs Glucagon (Glucagon For Inj 1 Mg Vial) 1 mg SQ UD PRN; Protocol PRN Reason: Hypoglycemia Protocol Stop: 08/06/23 13:22 Glucose (Glucose 10 Tab/Tube) 4 - 8 tab PO UD PRN; Protocol PRN Reason: Hypoglycemia Treatment Stop: 08/06/23 13:22 Glucose (Glucose 40% Gel 15 Gm Tube) 15 - 30 gm PO UD PRN; Protocol PRN Reason: Hypoglycemia Protocol Stop: 08/06/23 13:22 Hydromorphone HCl (Hydromorphone Inj 0.5 Mg/0.5 Ml Syr) 0.5 mg IV Q3H PRN PRN Reason: MODERATE Pain (Scale 4,5,6) & Pre PT Stop: 07/20/23 16:41 Hydromorphone HCl (Hydromorphone Inj 1 Mg/Ml Syringe) 1 mg IV Q3H PRN PRN Reason: SEVERE Pain (Scale 7,8,9,10) Stop: 07/20/23 16:41 Last Admin: 07/07/23 01:49 Dose: 1 mg Hydroxyzine HCl (Hydroxyzine Hcl 25 Mg Tab) 25 mg PO Q8H PRN PRN Reason: Anxiety Stop: 08/05/23 16:41 Promethazine HCl 12.5 mg/ (Sodium Chloride) 50.5 mls @ 202 mls/hr IV Q6H PRN PRN Reason: Nausea &/or Vomiting Stop: 08/05/23 16:41 Dexamethasone 6 mg/ Syringe 1.5 mls @ 1 mls/min IV DAILY [facility] Stop: 07/09/23 09:02 Last Admin: 07/07/23 08:49 Dose: 1 mls/min Influenza Virus Vaccine Quadrival (Do Not Administer Flu Vaccine) 1 each N/A PRN PRN PRN Reason: Notification Stop: 08/05/23 16:41 Insulin Aspart (Insulin Aspart Per Unit Charge) 0 units SC ACHS [facility] Stop: 08/06/23 16:29 Last Admin: 07/07/23 20:45 Dose: 3 units Lorazepam (Lorazepam 0.5 Mg Tab) 0.5 mg PO Q8H PRN PRN Reason: Sedation/Anxiety Stop: 08/05/23 16:41 Lorazepam (Lorazepam 2 Mg/1 Ml Vial) 0.5 mg IV Q8H PRN PRN Reason: Sedation/Anxiety Stop: 08/05/23 16:41 Magnesium Hydroxide (Magnesium Hydroxide Susp 30 Ml Udc) 30 ml PO Q24H PRN PRN Reason: Constipation Stop: 08/05/23 16:41 Metoclopramide HCl (Metoclopramide Hcl Inj 5 Mg/Ml 2 Ml Vial) 10 mg IV Q6H PRN PRN Reason: Nausea &/or Vomiting Stop: 08/05/23 16:41 Metoprolol Tartrate (Metoprolol Tartrate 25 Mg Tab) 25 mg PO BID [facility] Stop: 08/06/23 08:59 Last Admin: 07/07/23 20:38 Dose: Not Given Miscellaneous (Carbohydrates For Hypoglycemia ) 15 - 30 gm PO UD PRN PRN Reason: Hypoglycemia Protocol Stop: 08/06/23 13:22 Naloxone HCl (Naloxone Hcl 0.4 Mg/1 Ml Vial/Carp) 0.1 mg IV Q5M PRN PRN Reason: Oversedation/Resp depression Stop: 08/05/23 16:41 Ondansetron HCl (Ondansetron Inj 2 Mg/Ml 2 Ml Vial) 4 mg IV Q6H PRN PRN Reason: Nausea &/or Vomiting Stop: 08/05/23 16:41 Ondansetron HCl (Ondansetron 4 Mg Od Tab) 4 mg PO Q6H PRN PRN Reason: Nausea Stop: 08/05/23 16:41 Oxycodone HCl (Oxycodone Hcl Ir 5 Mg Tab (Immediate Release)) 5 - 10 mg PO Q4H PRN PRN Reason: Pain & Pre PT Stop: 07/20/23 16:41 Last Admin: 07/08/23 04:35 Dose: 10 mg Pneumococcal Polyvalent Vaccine (Do Not Administer Pneumococcal Vaccine) 1 each N/A PRN PRN PRN Reason: Notification Stop: 08/05/23 16:41 Polyethylene Glycol (Polyethylene (Miralax) 17 Gm Pack) 17 gm PO Q6 EDWINA Stop: 08/06/23 05:59 Last Admin: 07/08/23 05:33 Dose: 17 gm Senna/Docusate Sodium (Docusate Sodium/Senna 50/8.6mg Tab) 2 tab PO HS EDWINA Stop: 08/05/23 20:59 Last Admin: 07/07/23 20:45 Dose: 2 tab Sodium Biphosphate/Sodium Phosphate (Sod Phosphate/Sod Biphosphate Enema 132 Ml Btl) 132 ml KS ONE PRN PRN Reason: Constipation Stop: 08/05/23 16:41 Tramadol HCl (Tramadol Hcl 50 Mg Tablet) 50 - 100 mg PO Q4H PRN PRN Reason: Moderate-Severe pain & Pre PT Stop: 08/05/23 16:41
[2023-07-08 08:04] LABS: Hematocrit (blood only) 30.1 % (37.0-47.0); Hemoglobin 9.8 g/dl (12.0-16.0); Mean Corpuscular Hemoglobin 30.4 pg (25.0-34.0); Mean Corpuscular Hgb Conc 32.6 g/dL (32.0-36.0); Mean Corpuscular Volume 93.5 fL (80.0-100.0); Mean Platelet Volume 9.3 fL (9.4-12.4); Platelet Count 278 K/uL (130-400); RDW Coefficient of Variation 13.8 % (11.5-14.5); RDW Standard Deviation 46.7 fL (36.4-46.3); Red Blood Count 3.22 M/uL (4.20-5.40)
[2023-07-08 08:14] LABS: BUN Creatinine Ratio 16.1 (10-20); Calcium 8.9 mg/dl (8.6-10.3); Creatinine Clr Calc Pharmacy 77.8 ml/min; Est GFR (African American) 79.6 ml/min; Est GFR (Non-African American) 68.7 ml/min
[2023-07-08 08:17] LABS: Estimated Average Glucose 154 mg/dl
--- NOTE | 2023-07-08 08:30 | Discharge Summary ---
Date of Service July 08, 2023 Admission HPI Per Admitting Provider This is a 58-year-old female who presents chronic persistent back and leg pain and failing course of nonoperative care she is here for surgical invention. Principal Diagnosis Lumbar spinal stenosis with neurogenic claudication Discharge Data Allergies Allergy/AdvReac Type Severity Reaction Status Date / Time No Known Allergies Allergy Verified 07/06/23 10:22 Consultations 07/06/23 16:42 Consult Hospitalist Routine Procedures Performed Operation Date: 07/06/23 11:45 Actual Procedures p L4-L5 Decompression and Fusion, Spinal Cord Monitoring(Not Applicable) - Pal Salas DO Ordered Studies 07/06/23 [place] lumbar spine 2-3V Routine Hospital Course (1) Neurogenic claudication due to lumbar spinal stenosis: Patient with lumbar decompression fusion tolerated as well as taken to orthopedic for postoperative. Postop day 1 she was up and ambulating progress postop day #2. WHITNEY drain decreasing probably. Pain well controlled. Excellent strength testing. Subsidy discharged home. Discharge orders instructions found in chart for further review. Total Time Total Time Spent Total Time Spent (In Minutes): 20 minutes Discharge Plan Discharge Items Patient Disposition: Home - Self-Care Reason For Visit: POSTOP Discharge Diagnosis: stenosis Activity: As commented below Non-emergency contact: Primary Care Provider Call non-emergency contact if: you have any medication questions Follow-up/Referrals: Jeffry Grover MD [Primary Care Provider] - Diet: Regular Addtl Attending Provider Instructions: ACTIVITY RECOMMENDATIONS: SELF CARE INSTRUCTIONS AFTER THORACIC/LUMBAR FUSIONS 1. You may walk to your tolerance. It is good exercise for your legs and back. Expect some back and intermittent leg aches and pains. 2. You may perform "counter-top" level activities (make a sandwich, ilan with a project, etc.). 3. No bending or lifting of more than 10 pounds or back twisting of any nature (roll like a log when turning in bed). 4. You may ride in a car for 20-30 minutes at a time. No driving until after your first visit with your doctor. 5. Frequent changes of position and restricting sitting to 30 minutes at a time will help limit the amount of back spasms and stiffness you may experience. 6. You may discontinue the use of ambulatory aids (cane, crutches, etc.) once your strength and confidence allow. 7. You may vice president investor relations the shower and let water strike your incision when you arrive home at least once daily. Do not take a tub bath, sit in a hot tub or go into a swimming pool until after your first recheck in the office. SPECIAL CARE INSTRUCTIONS: VERY IMPORTANT TO READ AND REVIEW A. Your surgical incision has been closed with a cosmetic suture under the skin that will dissolve in about 6 weeks. In 14 days, you can use a pair of clean scissors and cut the suture that is left outside of the skin at the ends of your incision. 1. The small skin tapes can be removed 7 days after surgery if they have not fallen off by that point. 2. You may keep the wound open to air as much as possible to promote healing after post-op day number 5 unless told otherwise by your doctor. 3. If you think the wound looks like it is becoming infected (redness or worsening drainage) and/or you are experiencing fever, chill or worsening back pain and muscle spasms, contact the office so that we may evaluate you as soon as possible. B. Complications are uncommon, but please contact us if you have any signs or symptoms of: 1. wound infection (fever higher than 102.5 degrees F, redness, separation of wound, drainage, or increasing pain from the incision) 2. blood clots in legs (pain, swelling, redness and warmth in legs) 3. urinary tract infection (fever higher than 102.5 degrees F, burning upon urination or increased frequency of urination) 4. nerve problems (inability to walk on your toes or heels, numbness, loss of bowel or bladder control) 5. any other symptoms that concern you C. Please call the office at if you have any concerns or questions about your operation or recovery. D. No smoking! Smoking drastically decreases the chance of a solid fusion. E. Do not take any anti-inflammatory medications (Indocin, Advil, Motrin, Aspirin, Naprosyn, etc.) as these may inhibit the chance of a solid fusion. Tylenol is okay to take for pain. MANAGING PAIN AFTER SPINAL SURGERY 1. Narcotic medication is intended for short-term use and will be provided for surgical pain. Surgical pain usually lasts for a period of 4-6 weeks. Narcotic medication includes Percocet, Vicodin, Darvocet, Tylenol #3 or Lortab. 2. Longer-term pain is more appropriately treated with non-narcotic medication such as Tylenol ES. 3. Muscle spasm is not appropriately treated with narcotics. Muscle relaxers such as Soma, Flexeril or Skelaxin can be used along with Tylenol ES. 4. Remember that we all live with some "aches and pains". This is not unusual or uncommon after an injury or as we get older. a. Back pain is expected and may include muscle spasms for 4 to 6 weeks after surgery. The pain should gradually improve. If the pain worsens for no apparent reason, please contact the office. b. Intermittent leg pain may also be experienced and should not be concerned about unless it worsens for no apparent reason. If so, please contact the office. 5. We will provide appropriate medication within the normal guidelines of their prescribed use. We will also be very cautious and aware of potential abuse and extended duration of patients' medication needs. a. Pain medications are for your comfort and to assist with sleep and rest so that the tissue can heal. They are not provided in order to return to normal activity and should not be used through the day. To do so or worsening pain at night can result from ongoing tissue damage and development of tolerance to the prescribed medicine. 6. Please allow 2-3 days to process refills. Prescriptions will not be mailed but must be picked up at the office. FOLLOW UP VISIT: Keep your scheduled follow-up appointment. Any questions, please call the office at . Pending Studies at Discharge: No Stand-Alone Forms: [facility] V[facility], Smoking Cessation Medications and DC Order Prescriptions: New tramadol 50 mg tablet 50 mg PO Q6H PRN (Reason: pain, moderate) Qty: 30 0RF oxycodone 5 mg tablet 5 mg PO Q6H PRN (Reason: pain) Qty: 30 0RF Continued meloxicam 15 mg Tablet 15 mg PO QAM alprazolam [Xanax] 0.5 mg Tablet 0.5 mg PO TID PRN (Reason: Anxiety) fluticasone propion-salmeterol [Advair Diskus] 100-50 mcg/dose Blister With Device 1 inh INHALATION BID duloxetine [Cymbalta] 60 mg Capsule,Delayed Release(Dr/Ec) 60 mg PO QAM nebivolol [Bystolic] 10 mg Tablet 10 mg PO QAM Rinvoq 15 mg Tablet Extended Release 24 Hr 15 mg PO QAM albuterol sulfate 90 mcg/actuation Hfa Aerosol Inhaler 2 puff INHALATION QID PRN (Reason: Shortness Of Breath) fexofenadine 180 mg Tablet 180 mg PO DAILY Discharge Orders: Discharge Order (Routine); Ordered 07/08/23 Ordered By: Pal Salas Admission Data Admit Date/Time: 07/06/23 15:01 Attending Provider: Pal Salas Admit Provider: Pal Salas Primary Care Provider: Jeffry Grover Other Providers: Lashay Baxter ; Luke Rossi
[2023-07-08] MEDS: METOPROLOL TARTRATE 25 MG TAB PO SCH (09:31)
[2023-07-08] MEDS: DULoxetine HCL 60 MG CAP PO SCH (09:31)
[2023-07-08] MEDS: FLUTICASONE/VILANTEROL 100/25MCG 14 PUFFS/INHALER INH SCH (09:32)
[2023-07-08] MEDS: dexAMETHasone 6 MG in SYRINGE 0 ML IV SCH (09:32)
[2023-07-08] MEDS: INSULIN ASPART PER UNIT CHARGE SC SCH (09:33)
[2023-07-08] MEDS: diphenhydrAMINE Capsule 25 MG CAP PO PRN (09:42)
== END 2023-07-08 12:56 | disposition home or self-care (01) | DRG 454 ==
LOC: ASU 10:04 → 3N 15:01